=== PATIENT | male | born 1990 | race Native Hawaiian/Other Pacific Islander ===

== ENCOUNTER 2016-03-01 10:25 | Outpatient (CLI) | payer OTHER | END 2016-03-01 21:27 | disposition home or self-care (01) | LOC: RAD 10:25 | DX: M54.17 Radiculopathy, lumbosacral region (principal) ==

== ENCOUNTER 2018-02-04 12:17 | Outpatient (CLI) | payer OTHER | END 2018-02-04 22:39 | disposition home or self-care (01) | LOC: LAB 12:17 | DX: R19.7 Diarrhea, unspecified (principal) | CPT/HCPCS: 83630; 87015; 87045; 87324; 87328; 87329; 87449; 87899 ==

== ENCOUNTER 2020-05-31 12:10 | Outpatient (CLI) | payer OTHER | END 2020-05-31 21:10 | disposition home or self-care (01) | LOC: RAD 12:10 | PROVIDERS: ATTEND Nurse Practitioner Family | DX: M54.17 Radiculopathy, lumbosacral region (principal) ==

== ENCOUNTER 2020-12-12 12:44 | Outpatient (CLI) | payer OTHER ==
[2020-12-12 13:29] LABS: POTASSIUM 3.8 mmol/L (3.6-5.2)
[2020-12-12 13:30] LABS: PLATELET COUNT 262 K/uL (142-355)
== END 2020-12-12 19:11 | disposition home or self-care (01) ==
LOC: CT 12:44
PROVIDERS: ATTEND Nurse Practitioner Family
DX: R10.32 Left lower quadrant pain (principal); K52.9 Noninfective gastroenteritis and colitis, unspecified; Z72.51 High risk heterosexual behavior
CPT/HCPCS: 36415; 80053; 80074; 82150; 83690; 85027; 86592; 86701; 86702; 87389; 87529; Q9963

== ENCOUNTER 2021-02-23 10:07 | Outpatient (CLI) | payer OTHER | END 2021-02-23 19:13 | disposition home or self-care (01) | LOC: RAD 10:07 | PROVIDERS: ATTEND Nurse Practitioner Family | DX: U07.1 COVID-19 (principal) ==

== ENCOUNTER 2022-05-07 16:30 | Outpatient (CLI) | payer OTHER ==
[2022-05-07 17:26] LABS: POTASSIUM 4.2 mmol/L (3.6-5.2)
== END 2022-05-07 21:49 | disposition home or self-care (01) ==
LOC: LABW 16:30
PROVIDERS: ATTEND Family Medicine
DX: R53.82 Chronic fatigue, unspecified (principal); Z13.220 Encounter for screening for lipoid disorders
CPT/HCPCS: 36415; 80053; 80061; 82306; 82607; 84443